=== PATIENT | male | born 1955 | race Caucasian/White ===

== ENCOUNTER 2016-07-15 18:41 | Emergency (ER) | payer OTHER ==
[~2016-07-15] VITALS: Ht 177.8 cm; Wt 100.2 kg
[2016-07-15 20:56] VITALS: BP 153/79
--- NOTE | 2016-07-15 21:29 | ED HEAD/FACIAL INJ COMPLAINT ---
History of Present Illness General Chief Complaint: Facial or Head Injury Stated Complaint: HIT HEAD ON FAUCET Source: patient Exam Limitations: no limitations Vital Signs & Intake/Output Vital Signs & Intake/Output Vital Signs Date Time Temp Pulse Resp B/P B/P Pulse O2 O2 Flow FiO2 Mean Ox Delivery Rate 07/15 2106 Room Air 07/16 2055 97.0 71 18 153/79 97 Room Air 07/15 1847 97.9 87 15 134/74 100 Room Air ED Intake and Output 07/16 0000 07/15 1200 Intake Total Output Total Balance Patient 221 lb Weight Weight Reported by Patient Measurement Method Allergies Uncoded Allergies: CONTRAST (Severe, ANAPHYLAXIS 07/15/16) Triage Note: PT TO ED FOR SMALL LAC TO L SIDE OF FOREHEAD, STATES 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 PT UNSURE OF TETANUS STATUS Triage Nurses Notes Reviewed? yes HPI: This patient is a 61-year-old male who presented to the emergency department today for evaluation of a laceration to his forehead. The patient reported that he was in the shower and a bottle of shampoo bottle on the ground. He reported that he bent down to pick it up and when he stood up, he hit his head on the faucet. He denied loss of consciousness. He denied any pain or headaches. He denied any visual changes, dizziness, or lightheadedness. He is unsure of his last tetanus immunization. (AKIKO ALATORRE PA-C) Past History Travel History Traveled to [place] past 21 day No Medical History Any Pertinent Medical History? see below for history Neurological: NONE EENT: NONE Cardiovascular: hypertension, hyperlipidemia Respiratory: NONE Gastrointestinal: NONE Hepatic: NONE Renal: nephrolithiasis Musculoskeletal: NONE Psychiatric: NONE Endocrine: diabetes Blood Disorders: NONE Cancer(s): NONE Surgical History Surgical History: non-contributory Psychosocial History What is your primary language Vincentian Tobacco Use: Never used ETOH Use: denies use Illicit Drug Use: denies illicit drug use Family History Hx Contributory? No (AKIKO ALATORRE PA-C) Review of Systems Review of Systems Constitutional: Reports: no symptoms. EENTM: Reports: no symptoms. Respiratory: Reports: no symptoms. Cardiovascular: Reports: no symptoms. GI: Reports: no symptoms. Musculoskeletal: Reports: no symptoms. Skin: Reports: see HPI. Neurological/Psychological: Reports: no symptoms. All Other Systems: Reviewed and Negative (AKIKO ALATORRE PA-C) Physical Exam Physical Exam General Appearance: well developed/nourished, no apparent distress, alert, awake Cranial Nerves: normal hearing, normal speech, PERRL Comments: Well-developed well-nourished person in no acute distress HEENT: Head normocephalic, no bony deformity/step-offs of the skull, moist mucous membranes Neck: Supple, no lymphadenopathy Back: Normal gait Respiratory: No respiratory distress. Speaking in full sentences Extremities: No edema, full range of motion Neuro: Alert and oriented x3 Psych: Mood affect normal, normal memory normal judgment. Skin: Warm and dry, no rash on exposed skin. Approximately 2 cm in length, linear, superficial laceration to the left aspect of the forehead. Small part of the laceration, approximately 0.5 cm in length, which extends into the subcutaneous tissue. Mild amount of active bleeding. No foreign body in the wound site. No stranding erythema or edema (AKIKO ALATORRE PA-C) Progress Differential Diagnosis: c-spine injury, facial fracture, globe injury, ICH, skull fracture, SKIN LACERATION, SKIN AVULSION, SKIN TEAR Plan of Care: Current Medications Sig/Quentin Start time Last Medication Dose Stop Time Status Admin Tetanus/Diphtheria 0.5 ML ONCE ONE 07/15 2129 UNVr Toxoids Adsorbed 07/15 2130 (Decavac) Departure Departure Disposition: HOME OR SELF CARE Condition: Stable Clinical Impression Primary Impression: Laceration Referrals: LACY GUZMAN,JOSEP Ferguson (PCP/Family) Additional Instructions: Please keep the wound site clean and dry. You may reapply bacitracin to the area once or twice a day over the next 3 days. After that time, please allow the wound to stay dry. Return in 5-7 days for a wound check and suture removal. Return sooner for any worsening symptoms, excessive pain, pus drainage from the wound site, spreading of redness around the wound site, fevers, chills, or for any other concerns. Departure Forms: Customer Survey General Discharge Information (AKIKO ALATORRE PA-C) PA/OPERATIONS ASST Co-Sign Statement Statement: ED Attending supervision documentation- [] I saw and evaluated the patient. I have also reviewed all the pertinent lab results and diagnostic results. I agree with the findings and the plan of care as documented in the PA's/OPERATIONS ASST's documentation. [X] I have reviewed the ED Record and agree with the PA's/OPERATIONS ASST's documentation. [] Additions or exceptions (if any) to the PAs/OPERATIONS ASST's note and plan are summarized below: [] (ZENIA GUZMAN,YARY) Procedures Laceration/Wound Repair Laceration/Wound Repair: Wound Location: face Wound's Depth, Shape: irregular, superficial, subcutaneous Wound Length (cm): 2 Wound Explored: irrigated extensively Irrigated w/ Saline (ccs): 500 Betadine Prep? Yes Anesthesia: lidocaine w/ epi Volume Anesthetic (ccs): 2 Wound Repaired With: sutures Suture Size/Type: 5:0 Number of Sutures: 2 Layer Closure? No Sterile Dressing Applied: Yes Splint Applied? No Sling Applied? No Tetanus Status: not up to date Progress: Patient tolerated the procedure well. (LANDRY CRUZ,AKIKO)
== END 2016-07-15 22:09 ==
LOC: ERH 18:41
DX: S01.81XA Laceration without foreign body of other part of head, initial encounter (principal); W22.09XA Striking against other stationary object, initial encounter; Y93.E1 Activity, personal bathing and showering; Y92.9 Unspecified place or not applicable
CPT/HCPCS: 90471; 90714

== ENCOUNTER 2016-07-20 21:41 | Emergency (ER) | payer OTHER ==
[~2016-07-20] VITALS: Ht 177.8 cm; Wt 99.8 kg
[2016-07-20 22:31] VITALS: BP 147/69
[2016-07-20] MEDS ORDERED: ONGLYZA5 M1 PO (22:40)
[2016-07-20] MEDS ORDERED: SIMVASTATIN40 M1 PO (22:40)
[2016-07-20] MEDS ORDERED: LISINOPRIL5 M1 PO (22:40)
[2016-07-20] MEDS ORDERED: TAMSULOSIN HCL0.4 M1 PO (22:41)
[2016-07-20] MEDS ORDERED: UROCIT-K15 ME1 PO (22:41)
[2016-07-20] MEDS ORDERED: ALLOPURINOL300 M1 PO (22:41)
--- NOTE | 2016-07-20 22:43 | ED ANIMAL BITE/WOUND CHECK ---
History of Present Illness General Chief Complaint: Suture Removal/Wound Recheck Stated Complaint: SUTURE REMOVAL Source: patient, old records Exam Limitations: no limitations Vital Signs & Intake/Output Vital Signs & Intake/Output Vital Signs Date Time Temp Pulse Resp B/P B/P Pulse O2 O2 Flow FiO2 Mean Ox Delivery Rate 07/20 2231 98.0 75 18 147/69 96 Room Air Allergies Uncoded Allergies: CONTRAST (Severe, ANAPHYLAXIS 07/15/16) Reconcile Medications Lisinopril 5 MG TABLET 1 TAB PO DAILY HEART HEALTH (Reported) Saxagliptin (Onglyza) 5 MG TABLET 1 TAB PO DAILY DIABETES (Reported) Simvastatin (Simvastatin*) 40 MG TABLET 1 TAB PO QPM HEART HEALTH (Reported) Triage Note: PT TO ED FOR SUTURE REMOVAL. 2 SUTURES TO FOREHEAD FOR 5 DAYS. NO S/S OF INFECTION Triage Nurses Notes Reviewed? yes Onset: Last week Duration: day(s):, better Timing: recent history Injury Environment: home Is Injury an Animal Bite? No Severity: mild No Modifying Factors: none HPI: 5 days prior to admission patient sustained a forehead laceration requiring 3 sutures. He denies fever chills nausea vomiting diarrhea abdominal pain chest pain shortness of breath headache dysuria rash bleeding wound discharge. Past History Travel History Traveled to [place] past 21 day No Medical History Any Pertinent Medical History? see below for history Neurological: NONE EENT: NONE Cardiovascular: hypertension, hyperlipidemia Respiratory: NONE Gastrointestinal: NONE Hepatic: NONE Renal: nephrolithiasis Musculoskeletal: NONE Psychiatric: NONE Endocrine: diabetes Blood Disorders: NONE Cancer(s): NONE Tetanus Vaccine: 07/15/16 Surgical History Surgical History: non-contributory Psychosocial History What is your primary language Finnish Tobacco Use: Never used ETOH Use: occasional use Illicit Drug Use: denies illicit drug use Family History Hx Contributory? No Review of Systems Review of Systems Constitutional: Reports: no symptoms. EENTM: Reports: no symptoms. Respiratory: Reports: no symptoms. Cardiovascular: Reports: no symptoms. GI: Reports: no symptoms. Genitourinary: Reports: no symptoms. Musculoskeletal: Reports: no symptoms. Skin: Reports: see HPI. Neurological/Psychological: Reports: no symptoms. Hematologic/Endocrine: Reports: no symptoms. Immunologic/Allergic: Reports: no symptoms. All Other Systems: Reviewed and Negative Physical Exam Physical Exam General Appearance: well developed/nourished, mild distress Head: wound healing well Eyes: Bilateral: PERRL, EOMI. Ears, Nose, Throat: normal pharynx, normal ENT inspection, hearing grossly normal Neck: normal inspection, supple Respiratory: normal breath sounds Cardiovascular: regular rate/rhythm Peripheral Pulses: 4+ carotid (R), 4+ carotid (L) Gastrointestinal: soft, non-tender Back: normal inspection Extremities: normal range of motion Neurologic/Psych: awake, alert, oriented x 3, normal mood/affect Reflexes: 2+: bicep (R), bicep (L). Skin: intact, normal color, warm/dry Lymphatic: no anterior cervical steve Progress Differential Diagnosis: abscess, cellulitis Plan of Care: 3 sutures removed Departure Departure Time of Disposition: 2242 Disposition: HOME OR SELF CARE Condition: Stable Clinical Impression Primary Impression: Visit for suture removal Referrals: LACY GUZMAN,JOSEP Ferguson (PCP/Family) Departure Forms: Customer Survey General Discharge Information
== END 2016-07-20 22:52 ==
LOC: ERH 21:41
DX: S01.81XA Laceration without foreign body of other part of head, initial encounter (principal); X58.XXXA Exposure to other specified factors, initial encounter
CPT/HCPCS: 99281